=== PATIENT | male | born 1975 | race Caucasian/White ===

== ENCOUNTER 2019-03-04 23:55 | Emergency (ER) | payer SELFPAY ==
--- NOTE | 2019-03-05 01:21 | RADIOLOGY REPORT (SQ) ---
CLINICAL HISTORY: diff breathing and cough x 2 mon COMPARISON: None. TECHNIQUE: XR CHEST 2 VIEWS 03/05/2019 12:00 AM CDT FINDINGS: Cardiac silhouette is normal in size. Lungs are clear without consolidation, atelectasis, mass or edema. There is no pleural effusion. There is no pneumothorax. There are no acute osseous findings. IMPRESSION: Clear lungs.
[2019-03-05] MEDS ORDERED: IPRATROPIUM/ALBUTEROL 0.5-2.5 MG/3 ML AMPUL NEB ONE (01:58)
[2019-03-05] MEDS ORDERED: METHYLPREDNISOLONE INJ 125 MG/2 ML SDV IV ONE (01:58)
[2019-03-05 02:04] LABS: ABSOLUTE BASOPHILS # (AUTO) 0.1 10^3/uL (0.0-0.2); ABSOLUTE EOSINOPHILS # (AUTO) 0.5 10^3/uL (0.0-0.6); ABSOLUTE LYMPHOCYTES (AUTO) 3.8 10^3/uL (0.5-4.7); ABSOLUTE MONOCYTES (AUTO) 0.9 10^3/uL (0.1-1.4); BASOPHILS % (AUTO) 0.5 % (0-2); EOSINOPHILS % (AUTO) 3.4 % (0-6); HEMATOCRIT 44.3 % (37.9-51.0); LYMPHOCYTES % (AUTO) 24.7 % (13-45); MEAN CORPUSCULAR HEMOGLOBIN 29.4 pg (27.0-33.4); MEAN CORPUSCULAR VOLUME 87 fl (80-97); MONOCYTES % (AUTO) 6.1 % (3-13); PLATELET COUNT 295 10^3/uL (150-450); RED BLOOD COUNT 5.12 10^6/uL (4.35-5.55); RED CELL DISTRIBUTION WIDTH 12.9 % (11.5-14.0); SEGMENTED NEUTROPHILS % (AUTO) 65.3 % (42-78); TOTAL CELLS COUNTED % (AUTO) 100 %; WHITE BLOOD COUNT 15.3 10^3/uL (4.0-10.5)
[2019-03-05 02:30] LABS: ANION GAP 9 (5-19); BLOOD UREA NITROGEN 15 mg/dL (7-20); CALCIUM 9.7 mg/dL (8.4-10.2); CARBON DIOXIDE 28 mmol/L (22-30); CHLORIDE 102 mmol/L (98-107); GLUCOSE 113 mg/dL (75-110); POTASSIUM 4.4 mmol/L (3.6-5.0)
--- NOTE | 2019-03-05 02:40 | ER Document Report ---
ED General - General Chief Complaint: Breathing Difficulty Stated Complaint: SHORTNESS OF BREATH Time Seen by Provider: 03/05/19 01:37 TRAVEL OUTSIDE OF THE [place] IN LAST 30 DAYS: No - HPI Notes: This is a 43-year-old gentleman who presents today with a complaint of cough, congestion and dyspnea for the past 2 months. Patient states that he has some pain in his right lateral chest wall/ribs all this well, especially when he coughs. He denies any left-sided chest pain. Cough is sometimes productive of clear sputum. Patient states that he stopped smoking about a week ago. He denies any fever or chills. He describes his symptoms as moderate. There are no obvious aggravating or relieving factors. - Related Data Allergies/Adverse Reactions: Penicillins Allergy (Severe, Verified 03/05/19 00:26) Past Medical History - Social History Smoking Status: Current Every Day Smoker Chew tobacco use (# tins/day): No Frequency of alcohol use: None Drug Abuse: None Family History: Hypertension Patient has suicidal ideation: No Patient has homicidal ideation: No Past Surgical History: Reports: Hx Cholecystectomy Review of Systems - Review of Systems Constitutional: denies: Fever EENT: Nose congestion Cardiovascular: Chest pain. denies: Palpitations, Heart racing, Orthopnea Respiratory: Cough -: Yes All other systems reviewed and negative Physical Exam - Vital signs Vitals: Temp Pulse Resp BP Pulse Ox 98.0 F 89 16 154/106 H 99 03/05/19 00:02 03/05/19 00:02 03/05/19 00:02 03/05/19 00:02 03/05/19 00:02 - General General appearance: Appears well, Alert - Respiratory Respiratory status: No respiratory distress Chest status: Tender - There is right lateral chest wall/rib tenderness. No flail chest. No crepitus., Pain with cough Breath sounds: Wheezing - Diffuse scattered wheezes appreciated. Chest palpation: Normal - Cardiovascular Rhythm: Regular Heart sounds: Normal auscultation Murmur: No - Abdominal Inspection: Normal Distension: No distension Bowel sounds: Normal Tenderness: Nontender Organomegaly: No organomegaly - Neurological Neuro grossly intact: Yes Cognition: Normal Orientation: AAOx4 [place] Coma Scale Eye Opening: Spontaneous [place] Coma Scale Verbal: Oriented Aure Coma Scale Motor: Obeys Commands Aure Coma Scale Total: 15 Speech: Normal Motor strength normal: LUE, RUE, LLE, RLE Sensory: Normal - Psychological Associated symptoms: Normal affect, Normal mood - Skin Skin Temperature: Warm Skin Moisture: Dry Skin Color: Normal Course - Re-evaluation Re-evalutation: 03/05/19 02:38 Differential diagnosis includes pneumonia versus bronchitis versus COPD/asthma versus costochondritis. There is no clinical suspicion for pulmonary embolus or ACS with 2 months of symptoms. Will check basic labs. Will get chest x-ray. Will look for mass ulcer on chest x-ray. 03/05/19 03:52 Patient reevaluated. Patient is doing well. 03/05/19 04:04 Patient reevaluated. Patient is doing well. Better after DuoNeb treatment. No wheezing appreciated. He is stable for discharge. - Vital Signs Vital signs: Temp Pulse Resp BP Pulse Ox 98.0 F 89 20 122/84 99 03/05/19 00:02 03/05/19 00:02 03/05/19 04:01 03/05/19 04:01 03/05/19 04:01 - Laboratory Result Diagrams: 03/05/19 01:11 03/05/19 01:11 Laboratory results interpreted by me: 03/05/19 03/05/19 01:11 01:11 WBC 15.3 H Absolute Neuts (auto) 10.0 H Glucose 113 H Discharge - Discharge Clinical Impression: Bronchospasm Acute bronchitis Qualifiers: Bronchitis organism: unspecified organism Qualified Code(s): J20.9 - Acute bron chitis, unspecified Condition: Good Disposition: HOME, SELF-CARE Instructions: Bronchitis With Bronchospasm (Wheezing) ([facility]) Prescriptions: Prednisone [Deltasone 20 mg Tablet] 3 tab PO DAILY 5 Days #15 tablet Albuterol Sulfate [Proair HFA Inhalation Aerosol 8.5 gm MDI] 2 puff IH Q4H PRN #1 mdi PRN Reason: Referrals: [facility] [NO LOCAL MD] - Follow up as needed
[2019-03-05 04:27] VITALS: BP 148/78
--- NOTE | 2019-03-05 08:48 | EKG REPORT ---
SEVERITY:- BORDERLINE ECG - SINUS RHYTHM BORDERLINE T WAVE ABNORMALITIES : Confirmed by: Alice Washington MD 05-Mar-2019 08:47:54
== END 2019-03-05 04:24 | disposition home or self-care (01) ==
LOC: ER 23:55
DX: J21.9 Acute bronchiolitis, unspecified (principal); R05 Cough; R07.89 Other chest pain; R07.81 Pleurodynia; R09.81 Nasal congestion; R06.2 Wheezing; Z88.0 Allergy status to penicillin
CPT/HCPCS: 93005; 36415; 85025; 80048; 71046; 93010; J2930; J7620; 94640; 96374; 99285